=== PATIENT | male | born 1970 | race Caucasian/White ===

== ENCOUNTER 2021-10-05 10:28 | Emergency (ER) | payer BC, SELFPAY ==
[2021-10-05 10:46] VITALS: BP 113/71; PULSE 80; RESP 20; TEMP 37.3; O2SAT 100
[2021-10-05 10:49] VITALS: BP 113/71; PULSE 80; RESP 20; TEMP 37.3; O2SAT 100
--- NOTE | 2021-10-05 11:15 | ED.URI ---
HPI - URI/Sore Throat General Chief Complaint: Upper Respiratory Infection Stated Complaint: Body Aches,Headache Time Seen by Provider: 10/05/21 11:15 Source: patient Mode of arrival: ambulatory Limitations: no limitations History of Present Illness HPI Narrative: Sky Jones is a 51 yo male with no PMH who comes to express care complaining of body aches and headache with no fever no other symptoms that started last night. He is requesting a COVID test because he has a young daughter at home and also needs a legitimate test so that he can be off work waiting for the results Related Data Home Medications Medication Instructions Recorded Confirmed No Home Medications 10/05/21 10/05/21 Allergies Allergy/AdvReac Type Severity Reaction Status Date / Time No Known Allergies Allergy Unverified 10/05/21 10:48 Review of Systems Review of Systems: CONSTITUTIONAL: Denies fever, chills, sweats. Body aches, headache EYES: Denies visual changes, redness, discharge. ENT: Denies rhinorrhea, congestion, sore throat, otalgia. CARDIOVASCULAR: Denies chest pain, palpitations, edema. RESPIRATORY: Denies dyspnea, wheezing, cough GASTROINTESTINAL: Denies abdominal pain, nausea, vomiting, diarrhea. GENITOURINARY: Denies dysuria, hematuria, abnormal discharge SKIN: Denies rash or itching. NEUROLOGIC: Denies numbness, or focal weakness. PSYCHIATRIC: Denies anxiety or depression. PMFSH Past Medical History Medical History No acute medical problems Family History Family History Other Family history of cardiovascular disease Social History Social History Smoking status: Former smoker Second hand tobacco smoke exposure: No Smoking end date: 09/22/11 Alcohol intake: current Comments At time of signature, I agree with nursing past medical, surgical, social and family history. There is no relevant family history pertinent to the presenting complaint. Exam Narrative: GENERAL: This is a well-nourished, well-developed patient, in mild distress. HEAD: normocephalic, atraumatic. EYES: Sclera clear/white. Vision is grossly intact. EARS: External ears normal, auditory canals clear and without drainage, TMs normal without perforation. Hearing grossly intact. NOSE: External nose normal without nasal discharge, nares without redness, no rhinorrhea. THROAT: Mucous membranes moist, posterior pharynx mild erythema NECK: Neck supple, non-tender CARDIOVASCULAR: Regular rate and rhythm without murmurs, gallops, or rubs. RESPIRATORY: Clear to auscultation. Breath sounds equal bilaterally. No wheezes, rales, or rhonchi. GASTROINTESTINAL: Abdomen soft, non-tender, SKIN: warm, intact with no suspicious lesions or rash, good texture and turgor. NEURO: awake, alert, and oriented to person, place and time. There were no obvious focal neurologic abnormalities. Steady gait EXTREMITIES: Normal range of motion. BACK: Nontender without deformity Course Course Emergency Course: Patient comes with complaints of headache and body aches that started during the night He requested a COVID test and explained that he cannot qualify for rapid test but I would do a COVID PCR had a discussion about the legitimacy of the test and the work excuse Level of Care: Express Care Visit Vital Signs Vital signs: Vital Signs Temperature 99.2 F 10/05/21 10:46 Pulse Rate 80 10/05/21 10:46 Respiratory Rate 20 10/05/21 10:46 Blood Pressure 113/71 10/05/21 10:46 Pulse Oximetry 100 10/05/21 10:46 Temperature 99.2 F 10/05/21 10:49 Pulse Rate 80 10/05/21 10:49 Respiratory Rate 20 10/05/21 10:49 Blood Pressure 113/71 10/05/21 10:49 Pulse Oximetry 100 10/05/21 10:49 MDM - URI/Sore Throat Differential Diagnosis Differential diagnosis: Likely upper respiratory inf
[2021-10-06 23:19] LABS: SARS-CoV-2 RNA PCR Positive
== END 2021-10-05 11:43 | disposition home or self-care (01) ==
PROVIDERS: Emergency Provider Nurse Practitioner
DX: U07.1 COVID-19 (principal); Z87.891 Personal history of nicotine dependence
CPT/HCPCS: 99213; C9803; G0463; U0003; U0005

== ENCOUNTER 2023-06-22 14:37 | Emergency (ER) | payer OTHER, BC, SELFPAY ==
[2023-06-22 15:08] VITALS: BP 117/75; PULSE 76; RESP 20; TEMP 36.3; O2SAT 97
--- NOTE | 2023-06-22 16:01 | ED.GENADULT ---
HPI - General Adult General Chief complaint: Unspecified Stated complaint: facial swelling (rt side) Time Seen by Provider: 06/22/23 15:49 Source: patient and RN notes reviewed Mode of arrival: ambulatory Limitations: no limitations History of Present Illness HPI narrative: Patient presents today complaining of swelling and pain to his right cheek. Denies tooth pain, shortness of breath, fever, difficulty swallowing. Currently rates pain 5/10. He has tried no medication for symptoms prior to arrival. Related Data Allergies Allergy/AdvReac Type Severity Reaction Status Date / Time No Known Allergies Allergy Unverified 10/05/21 10:48 Review of Systems Review of Systems: CONSTITUTIONAL: Denies body aches, fever, chills, or sweats. EYES: Denies visual changes, redness, or discharge. ENT: Denies rhinorrhea, congestion, sore throat, or otalgia.+ right cheek pain and swelling CARDIOVASCULAR: Denies chest pain, palpitations, or edema. RESPIRATORY: Denies cough or dyspnea. GASTROINTESTINAL: Denies abdominal pain, nausea, vomiting, or diarrhea. GENITOURINARY: Denies dysuria or hematuria. SKIN: Denies rash, itching, or wounds. MUSCULOSKELETAL: Denies back pain, joint pain, or myalgia. NEUROLOGIC: Denies headache, numbness, tingling, or weakness. PSYCH: Denies depression or anxiety. PMFSH Past Medical History Medical History No acute medical problems Family History Family History Other Family history of cardiovascular disease Social History Social History Smoking status: Former smoker Second hand tobacco smoke exposure: No Smoking end date: 09/22/11 Alcohol intake: current Comments At time of signature, I have reviewed and agree with nursing past medical, surgical, social and family history unless otherwise noted. Please see nursing chart for further information. There is no relevant family history pertinent to the presenting complaint Exam Narrative: GENERAL: Well-appearing, well-nourished, and in no acute distress. HEAD: Normocephalic, atraumatic. EYES: EOMI. No redness or drainage. Conjunctivae normal. ENT: Mucous membranes pink and moist. Throat normal. Uvula midline. Teeth are nontender. Gums are not swollen or erythematous. Some mild to moderate gross dental decay. Patient has mild tenderness to palpation of his right submandibular salivary gland and duct. No stone palpated. No purulent discharge from the salivary gland noted. Scant swelling of the right cheek noted. NECK: Normal AROM. CHEST: No respiratory distress. EXTREMITIES: Normal range of motion. No edema. SKIN: Warm, dry, no rash. Capillary refill normal. Normal skin turgor. NEURO: No focal deficits. Alert and oriented x3. Gait steady. PSYCH: Normal affect. No signs of depression or anxiety. Course Course Level of Care: Express Care Visit Vital Signs Vital signs: Vital Signs Temperature 97.4 F L 06/22/23 15:08 Pulse Rate 76 06/22/23 15:08 Respiratory Rate 20 06/22/23 15:08 Blood Pressure 117/75 06/22/23 15:08 Pulse Oximetry 97 06/22/23 15:08 Oxygen Delivery Room Air 06/22/23 15:08 Temperature 97.4 F L 06/22/23 15:08 Pulse Rate 76 06/22/23 15:08 Respiratory Rate 20 06/22/23 15:08 Blood Pressure 117/75 06/22/23 15:08 Pulse Oximetry 97 06/22/23 15:08 Oxygen Delivery Room Air 06/22/23 15:08 Reviewed Medical Decision Making MDM Narrative Medical decision making narrative: Symptoms and exam are consistent with sialoadenitis. Will treat with a course of Augmentin. Patient has also been told to use sour candy to increase saliva production. Patient agrees with plan. Anticipatory guidance given. Differential Diagnosis Differential Diagnosis: Sialoadenitis, sialolithiasis, dental abscess, Sallie
== END 2023-06-22 16:10 | disposition home or self-care (01) ==
PROVIDERS: Emergency Provider Nurse Practitioner
DX: K11.21 Acute sialoadenitis (principal); Z87.891 Personal history of nicotine dependence
CPT/HCPCS: 99213; G0463

== ENCOUNTER 2023-09-23 08:04 | Emergency (ER) | payer OTHER, BC, SELFPAY ==
[2023-09-23 08:38] VITALS: BP 123/77; PULSE 71; RESP 18; TEMP 36.6; O2SAT 100
--- NOTE | 2023-09-23 08:40 | ED.URI ---
HPI - URI/Sore Throat General Chief Complaint: Upper Respiratory Infection Stated Complaint: sorethroat,congestion Time Seen by Provider: 09/23/23 08:40 Source: patient, RN notes reviewed and old records reviewed Mode of arrival: ambulatory Limitations: no limitations History of Present Illness HPI Narrative: 53-year-old male presents to the [facility] with complaints of sore throat, body aches, cough at night and congestion since yesterday. Has taken Advil. Reports that he has felt feverish but no recorded temperature Onset (ago): day(s) (1) Treatments prior to arrival: ibuprofen Related Data Home Medications Medication Instructions Recorded Confirmed No Home Medications 09/23/23 09/23/23 Allergies Allergy/AdvReac Type Severity Reaction Status Date / Time No Known Allergies Allergy Verified 09/23/23 08:30 Review of Systems Review of Systems: All systems reviewed & are unremarkable except as noted in HPI and below Constitutional: Constitutional: Reports as per HPI and Reports body ache(s) Eyes: Eyes: Reports no additional eye complaints ENT: Reports as per HPI, Reports nasal congestion, Reports post nasal drip and Reports sore throat Cardiovascular: Cardiovascular: Reports no additional cardiovascular complaints, Denies chest pain and Denies dyspnea Respiratory: Respiratory: Reports no additional respiratory complaints, Denies chest congestion, Denies cough and Denies dyspnea Gastrointestinal: Gastrointestinal: Reports no additional gastrointestinal complaints, Denies abdominal pain, Denies nausea and Denies vomiting Musculoskeletal: Musculoskeletal: Reports no additional musculoskeletal complaints Integumentary/Breasts: Skin/Breast: Reports system reviewed and no additional complaints, except as docu Neurologic: Reports system reviewed and no additional complaints, except as documented Psychiatric: Psychiatric: Reports no additional psychiatric complaints Allergic/Immunologic: Allergic/Immunologic: Reports no additional allergic/immunologic complaints [facility] Past Medical History Medical History No acute medical problems Family History Family History Other Family history of cardiovascular disease Social History Social History Smoking status: Former smoker Second hand tobacco smoke exposure: No Smoking end date: 09/22/11 Alcohol intake: current Comments At the time of my signature, I reviewed and agree with the nursing past medical, surgical, social, and family history. There is no relevant family history pertinent to the patient complaint. Exam Const: General: cooperative, healthy appearing, comfortable, no acute distress, well developed, alert and well nourished Nutritional Appearance: well nourished Orientation/consciousness: patient oriented x3 Limitations: no limitations HENMT: Head: normal to inspection Ears: hearing grossly normal bilaterally, external ears normal, TM's normal bilaterally, EAC's normal, mastoids normal and no periauricular adenopathy Face/Nose/Sinus: Normal external nose present, Normal nares present, Normal nasal mucous membranes and turbinates present, No nasal discharge present, normal facial exam, sinuses nontender and face symmetric Face and sinus: normal facial exam and face symmetric Mouth: Yes Normal oral and palatal mucosa present, Yes lip normal and Yes moist mucous membranes Throat: posterior oropharynx normal, tonsils normal, uvula midline and postnasal drainage Eyes: General: appearance normal, both eyes and all related structures Alignment and Position: alignment normal Periorbital: periorbital findings normal Pupils: Equal, round and reactive pupils present EOM: EOMs intact bilaterally Neck: Neck: normal visual inspection, full ROM, no lymphadenopathy and no meningeal signs Chest:
== END 2023-09-23 09:05 | disposition home or self-care (01) ==
PROVIDERS: Emergency Provider Nurse Practitioner
DX: J06.9 Acute upper respiratory infection, unspecified (principal); R09.82 Postnasal drip; Z20.822 Contact with and (suspected) exposure to COVID-19; Z87.891 Personal history of nicotine dependence
CPT/HCPCS: 87426; 87804; 99213; C9803; G0463